=== PATIENT | female | born 1955 | race Caucasian/White ===

== ENCOUNTER 2018-02-11 18:36 | Emergency (ER) | payer BC ==
[~2018-02-11] VITALS: Ht 162.6 cm; Wt 74.8 kg
--- NOTE | 2018-02-11 18:39 | Emergency Room Report ---
History of Present Illness General Source: Patient Present Illness HPI Patient is a 62-year-old female brought in by EMS after increased dizziness and near-syncope. Patient had prior history of vertigo. Patient had episode while standing. She was noted to have a presyncopal feeling. She denies prior cardiac history. She states that she had not been vomiting or having diarrhea. She denies any locations of pain. Allergies: Coded Allergies: No Known Allergies (Unverified , 02/11/18) Patient History Reviewed Nursing Documentation: PMH: Agreed; PSxH: Agreed Medical Decision Making Diagnostic Impression: Primary Impression: Near syncope Additional Impressions: Vertigo Diabetes ER Course Patient presented for near syncope. Differential diagnosis included but was not limited to arrhythmia, orthostatic hypotension, hypovolemia, vasovagal, anemia among others. Laboratory studies are unremarkable. EKG interpreted by me showed normal sinus rhythm with a rate of [address] or T wave changes. Patient was given meclizine as well as IV fluids.The patient is advised to follow up with primary care doctor in 1-2 days. Patient is advised to return if any worsening condition or if any changes in status that are concerning. This report is dictated with [employer] information [employer] software which may occasionally lead to discrepancies related to use of this software. Labs Test 02/11/18 18:55 White Blood Count 10.8 K/UL (4.8-10.8) Red Blood Count 4.32 M/UL (4.20-5.40) Hemoglobin 12.0 G/DL (12.0-16.0) Hematocrit 37.4 % (37.0-47.0) Mean Corpuscular Volume 87 FL (80-99) Mean Corpuscular Hemoglobin 27.9 PG (27.0-31.0) Mean Corpuscular Hemoglobin Concent 32.2 G/DL (32.0-36.0) Red Cell Distribution Width 12.4 % (11.6-14.8) Platelet Count 225 K/UL (150-450) Mean Platelet Volume 10.1 FL (6.5-10.1) Neutrophils (%) (Auto) 74.9 % (45.0-75.0) Lymphocytes (%) (Auto) 18.5 % (20.0-45.0) Monocytes (%) (Auto) 4.4 % (1.0-10.0) Eosinophils (%) (Auto) 1.5 % (0.0-3.0) Basophils (%) (Auto) 0.8 % (0.0-2.0) Prothrombin Time 10.2 SEC (9.30-11.50) Prothromb Time International Ratio 1.0 (0.9-1.1) Activated Partial Thromboplast Time 21 SEC (23-33) Sodium Level 140 MMOL/L (136-145) Potassium Level 4.1 MMOL/L (3.5-5.1) Chloride Level 103 MMOL/L (98-107) Carbon Dioxide Level 24 MMOL/L (21-32) Anion Gap 13 mmol/L (5-15) Blood Urea Nitrogen 11 mg/dL (7-18) Creatinine 1.0 MG/DL (0.55-1.30) Estimat Glomerular Filtration Rate 56.5 mL/min (>60) Glucose Level 131 MG/DL (74-106) Calcium Level 10.0 MG/DL (8.5-10.1) Total Bilirubin 1.1 MG/DL (0.2-1.0) Direct Bilirubin 0.2 MG/DL (0.0-0.3) Aspartate Amino Transf (AST/SGOT) 16 U/L (15-37) Alanine Aminotransferase (ALT/SGPT) 33 U/L (12-78) Alkaline Phosphatase 76 U/L (46-116) Troponin I 0.000 ng/mL (0.000-0.056) Total Protein 7.5 G/DL (6.4-8.2) Albumin 3.9 G/DL (3.4-5.0) Globulin 3.6 g/dL Albumin/Globulin Ratio 1.1 (1.0-2.7) EKG Diagnostic Results Rate: normal Rhythm: NSR ST Segments: no acute changes Status: improved Disposition: HOME, SELF-CARE Condition: Stable Scripts Meclizine Hcl* (MECLIZINE*) 25 Mg Tablet 25 MG ORAL THREE TIMES A DAY, #30 TAB Prov: Derek Wilkinson 02/11/18 Derek Wilkinson Feb 11, 2018 18:39
[2018-02-11] MEDS ORDERED: Sodium Chloride 500ML 500 ML IV ONE (19:00)
[2018-02-11 19:19] VITALS: BP 146/58
[2018-02-11 19:20] LABS: BASOPHILS % (AUTO) 0.8 % (0.0-2.0); EOSINOPHILS % (AUTO) 1.5 % (0.0-3.0); HEMATOCRIT 37.4 % (37.0-47.0); LYMPHOCYTES % (AUTO) 18.5 % (20.0-45.0); MEAN CORPUSCULAR VOLUME 87 FL (80-99); MONOCYTES % (AUTO) 4.4 % (1.0-10.0); NEUTROPHILS % (AUTO) 74.9 % (45.0-75.0); PLATELET COUNT 225 K/UL (150-450); RED BLOOD COUNT 4.32 M/UL (4.20-5.40); RED CELL DISTRIBUTION WIDTH 12.4 % (11.6-14.8); WHITE BLOOD COUNT 10.8 K/UL (4.8-10.8)
[2018-02-11 19:39] LABS: ANION GAP 13 mmol/L (5-15); BLOOD UREA NITROGEN 11 mg/dL (7-18); CARBON DIOXIDE 24 MMOL/L (21-32); CHLORIDE 103 MMOL/L (98-107); POTASSIUM 4.1 MMOL/L (3.5-5.1); SODIUM 140 MMOL/L (136-145)
[2018-02-11 19:49] LABS: ALANINE AMINOTRANSFERASE 33 U/L (12-78); ALBUMIN 3.9 G/DL (3.4-5.0); ALBUMIN/GLOBULIN RATIO 1.1 (1.0-2.7); ALKALINE PHOSPHATASE 76 U/L (46-116); ASPARTATE AMINO TRANSFERASE 16 U/L (15-37); BILIRUBIN,TOTAL 1.1 MG/DL (0.2-1.0)
[2018-02-11 19:50] LABS: BILIRUBIN,DIRECT 0.2 MG/DL (0.0-0.3)
[2018-02-11] MEDS ORDERED: Meclizine 25mg tab ORAL ONE (20:00)
[2018-02-11 21:10] VITALS: BP 139/50
[2018-02-11] MEDS ORDERED: MECLIZINE HCL25 MG ORAL (22:10)
[2018-02-11 22:20] VITALS: BP_SYST 133; BP_SYST 141; BP_SYST 146; BP_DIAS 42; BP_DIAS 45; BP_DIAS 62
[2018-02-11 22:25] VITALS: BP 139/85
--- NOTE | 2018-02-12 16:35 | Cardiology Report ---
APPROVED REPORT EKG Measurement Heart [id number] Normal sinus rhythm Normal ECG
== END 2018-02-11 22:25 | disposition home or self-care (01) ==
LOC: EDBD 18:36 → EMR 19:03
DX: R55 Syncope and collapse (principal); R42 Dizziness and giddiness; E11.9 Type 2 diabetes mellitus without complications
CPT/HCPCS: 36415; 80053; 82248; 82962; 84484; 85025; 85610; 85730; 93005; 96361; 96374; 99284; J7040